=== PATIENT | female | born 1945 | race African-American/Black ===

== ENCOUNTER 2021-08-04 13:42 | Emergency (ER) | payer OTHER ==
[~2021-08-04] VITALS: Ht 154.9 cm; Wt 74.8 kg
[2021-08-04] MEDS ORDERED: AUGMENTIN 875-1 EACH PO (14:12)
[2021-08-04] MEDS ORDERED: PERCOCET 5-3251 EACH PO (14:56)
[2021-08-04 15:04] VITALS: BP 133/77
== END 2021-08-04 15:04 | disposition home or self-care (01) ==
LOC: ER 13:42
DX: S51.052A Open bite, left elbow, initial encounter (principal); W54.0XXA Bitten by dog, initial encounter; Y93.89 Activity, other specified; Y92.89 Other specified places as the place of occurrence of the external cause; Y99.8 Other external cause status